=== PATIENT | female | born 1955 | race Caucasian/White ===

== ENCOUNTER 2016-12-29 15:00 | Outpatient (CLI) ==
[2015-01-31 17:59] VITALS: BMI 22.0
--- NOTE | 2016-12-29 15:19 | DI ---
EXAM: CHEST FRONTAL AND LATERAL VIEWS HISTORY: Cough. COMPARISON: 11/15/2015 FINDINGS: Heart size and mediastinal contour remain within normal limits. There is at least mild aortic atherosclerosis. No acute infiltrates are seen. There is no consolidation, visible pleural f luid or pneumothorax. Bones reveal no acute fracture. Stabilization hardware over the lower cervical spine. IMPRESSION: No acute cardiopulmonary process.
== END 2016-12-29 15:01 | disposition home or self-care (01) ==
LOC: RAD 15:00
PROVIDERS: ATTEND General Practice
DX: R05 Cough (principal)

== ENCOUNTER 2017-01-28 08:48 | Day surgery (SDC) ==
[2015-01-31 17:59] VITALS: BMI 22.0
[2017-01-28 09:13] VITALS: BP 101/62; TEMP 97.4
[2017-01-28] MEDS ORDERED: LIDOCAINE 1% 20 ML MDV SUBCUT ONE (09:47)
[2017-01-28] MEDS ORDERED: SILVER NITRATE APPLICATOR TP ONE ×2 (10:03)
[2017-01-28] MEDS ORDERED: NEOSPORIN OINT 0.9 GM PACKET TP ONE (10:05)
--- NOTE | 2017-03-03 10:51 | OP ---
INDICATIONS: 61-year-old female with bilateral ingrown toenail that is symptomatic. Both of them were on the medial side. The patient was advised that this will be removed and there is possibility of infection, probably removal and the area would look (junky), The junky grayish material is due to the Silver Nitrate cautery of the tissue after partial removal of the nail. The patient had understood the explanation and was then brought to surgery. PREOPERATIVE DIAGNOSIS: INGROWN TOENAIL, BILATERAL MEDIAL BIG TOE OPERATION: POSITIVE REMOVAL OF THE NAIL WITH SILVER NITRATE CAUTERY OF THE NAIL BED. POSTOPERATIVE DIAGNOSIS: INGROWN TOENAIL, BILATERAL MEDIAL BIG TOE PROCEDURE: The patient, in a supine posture, was then prepped and draped for surgery. A vertical incision was then made and dorsal surface of the distal phalanx of the big toe medial and carried to the nail toward the end. The nail that was ingrown was then removed. and the area was irrigated Betadine followed by Saline. The most proximal portion of the nail bed was then cauterized with Silver Nitrate times three. The procedure was accomplished with a rubber tourniquet proximally using 1% Xylocaine anesthesia. The left toe was done initially and then the right and the procedure was the same. The patient tolerated the procedure well. Neosporin ointment was applied plus dressing. The patient was then placed in a Trendelenburg position to stop the bleeding. The patient was placed in this position for 15 minutes and was instructed to follow up the next day for dressing change if that is necessary. DELMA
== END 2017-01-28 10:47 | disposition home or self-care (01) ==
LOC: SURG 08:48
PROVIDERS: ATTEND General Practice
DX: L60.0 Ingrowing nail (principal); D23.72 Other benign neoplasm of skin of left lower limb, including hip; D23.71 Other benign neoplasm of skin of right lower limb, including hip
CPT/HCPCS: 11750

== ENCOUNTER 2017-06-21 12:57 | Outpatient (CLI) ==
[2015-01-31 17:59] VITALS: BMI 22.0
== END 2017-06-21 12:58 | disposition home or self-care (01) ==
LOC: LAB 12:57
PROVIDERS: ATTEND General Practice
DX: I25.10 Atherosclerotic heart disease of native coronary artery without angina pectoris (principal); E78.5 Hyperlipidemia, unspecified; I10 Essential (primary) hypertension; F32.9 Major depressive disorder, single episode, unspecified; D51.9 Vitamin B12 deficiency anemia, unspecified; Z72.0 Tobacco use; Z79.899 Other long term (current) drug therapy
CPT/HCPCS: 36415; 80053; 80061; 81001; 85025

== ENCOUNTER 2018-01-12 11:39 | Outpatient (CLI) ==
[2015-01-31 17:59] VITALS: BMI 22.0
== END 2018-01-12 11:40 | disposition home or self-care (01) ==
LOC: FCC-LAB 11:39
PROVIDERS: ATTEND General Practice
DX: E78.5 Hyperlipidemia, unspecified (principal); I10 Essential (primary) hypertension; I25.10 Atherosclerotic heart disease of native coronary artery without angina pectoris; D51.9 Vitamin B12 deficiency anemia, unspecified; Z79.899 Other long term (current) drug therapy
CPT/HCPCS: 36415; 80053; 80061; 81001; 85025

== ENCOUNTER 2018-09-15 09:37 | Outpatient (CLI) ==
[2015-01-31 17:59] VITALS: BMI 22.0
--- NOTE | 2018-09-15 11:41 | DI ---
EXAM: CHEST FRONTAL AND LATERAL VIEWS HISTORY: Nicotine dependence. COMPARISON: 12/29/2016 FINDINGS: Heart size and mediastinal contour remain within normal limits. There is diffuse, chron ic appearing interstitial accentuation. Mild hyperinflation. Apical scarring is likely. No acute i nfiltrates or pleural fluid. Normal vascularity. Stabilization hardware of the cervical and lumbar spines IMPRESSION: 1. Chronic interstitial changes which can be consistent with a component chronic obstructive pulmona ry disease, correlate clinically.
--- NOTE | 2018-09-21 10:50 | MAMMO ---
EXAM: Bilateral digital screening mammogram (2-D and 3-D) History: Screening Comparison: Bilateral mammogram 04/17/2014 Findings: MLO and CC views of bilateral breasts demonstrate heterogeneously dense breast parenchyma which can obscure small lesions. CAD was reviewed by the radiologist. Tomosynthesis was performed. There are no dominant masses, no suspicious microcalcifications and no architectural distortions. B iopsy clip again seen within the left breast. Impression: Stable negative mammogram. Recommend followup routine screening mammography in 1 year. BIRADS 1, negative
== END 2018-09-15 09:38 | disposition home or self-care (01) ==
LOC: RAD 09:37
PROVIDERS: ATTEND General Practice
DX: Z12.31 Encounter for screening mammogram for malignant neoplasm of breast (principal); F17.200 Nicotine dependence, unspecified, uncomplicated

== ENCOUNTER 2018-11-14 09:06 | Outpatient (CLI) ==
[2015-01-31 17:59] VITALS: BMI 22.0
== END 2018-11-14 09:07 | disposition home or self-care (01) ==
LOC: RHC-LAB 09:06
PROVIDERS: ATTEND General Practice
DX: E78.5 Hyperlipidemia, unspecified (principal); I25.10 Atherosclerotic heart disease of native coronary artery without angina pectoris; D51.9 Vitamin B12 deficiency anemia, unspecified; I10 Essential (primary) hypertension; Z72.0 Tobacco use; Z79.899 Other long term (current) drug therapy
CPT/HCPCS: 36415; 80053; 80061; 81001; 85025